=== PATIENT | male | born 1935 | race Two or more races ===

== ENCOUNTER 2018-03-17 20:04 | Emergency (ER) | payer OTHER ==
[~2018-03-17] VITALS: Ht 167.6 cm; Wt 59.0 kg
--- NOTE | 2018-03-17 20:10 | NUR ---
PT FOUND BY [employer] AT HOME FOR WELFARE CHECK. AOX1. INCONTINENT URINE. PT LIVES ALONE AND DENIES ANY PAIN AT THIS TIME. PT ON MONITOR IN BED 1. WILL CONTINUE TO MONITOR.
--- NOTE | 2018-03-17 20:20 | NUR ---
PHLEB AT BEDSIDE FOR LAB DRAW
--- NOTE | 2018-03-17 20:29 | NUR ---
TECH AT BEDSIDE FOR EKG
[2018-03-17] MEDS ORDERED: IV NS 0.9% 1,000 ML BAG IV ONE ×2 (20:30→22:00)
--- NOTE | 2018-03-17 20:30 | NUR ---
RADIOLOGY AT BEDSIDE FOR CXR
[2018-03-17] MEDS ORDERED: LIDOCAINE 2% JEL UROJET 10 ML MM ONE (21:10)
[2018-03-17 21:23] LABS: BASOPHILS % (AUTO) 0.2 % (0.0-2.0); HEMATOCRIT 43 % (39-51); HEMOGLOBIN 14.5 g/dL (13.5-17.5); LYMPHOCYTES # (AUTO) 0.2 /CMM (0.8-4.8); MEAN CORPUSCULAR HGB CONC 34 g/dl (31.0-36.0); MEAN CORPUSCULAR VOLUME 83 fL (80-96); MONOCYTES # (AUTO) 0.9 /CMM (0.1-1.30); MONOCYTES % (AUTO) 4.9 % (2.0-12.0); NEUTROPHILS # (AUTO) 16.4 /CMM (1.8-8.9); NEUTROPHILS % (AUTO) 93.9 % (43.0-81.0); PLATELET COUNT (AUTO) 263 /CMM (150-450); RED BLOOD CELL COUNT(AUTO) 5.16 MIL/uL (4.5-6.0); WHITE BLOOD COUNT (AUTO) 17.5 K/uL (4.3-11.0)
[2018-03-17 21:24] LABS: APPEARANCE,URINE Turbid (CLEAR); BILIRUBIN,URINE Negative (NEGATIVE); BLOOD, URINE Large Ery/uL (NEGATIVE); COLOR,URINE Yellow (YELLOW); KETONES,URINE Trace (NEGATIVE); LEUKOCYTE ESTERASE ,URINE Moderate (NEGATIVE); NITRITE, URINE Negative (NEGATIVE); PROTEIN,URINE 100 mg/dl (NEGATIVE); UGLUCOSE Negative (NEGATIVE); UROBILINOGEN,URINE 0.2 EU/dL (0.2)
[2018-03-17 21:37] LABS: RBC,URINE TOO NUMEROUS TO COUN /HPF (0-2)
[2018-03-17 21:38] LABS: BACTERIA,URINE Many /HPF (None Seen); SQUAMOUS EPITHELIAL CELL,UR Few /HPF (None Seen); WBC,URINE 21-50 /HPF (0-3)
[2018-03-17 21:39] LABS: CALCIUM, SERUM 9.8 mg/dL (8.5-10.1); CARBON DIOXIDE 28 mmol/L (21-32); CHLORIDE 97 mmol/L (98-107); CREATININE 1.7 mg/dL (0.6-1.3); GLUCOSE 107 mg/dL (74-106); POTASSIUM 4.7 mmol/L (3.5-5.1); SODIUM SERUM 134 mmol/L (136-145); UREA NITROGEN, BLOOD 46 mg/dL (7-18)
[2018-03-17 21:46] LABS: ALANINE AMINOTRANSFERASE 25 U/L (12-78); ALBUMIN 3.5 g/dL (3.4-5.0); ALCOHOL, BLOOD < 3 mg/dL (0-0); ALKALINE PHOSPHATASE 128 U/L (46-116); ASPARTATE AMINOTRANSFERASE 60 U/L (15-37); BILIRUBIN,DIRECT 0.2 mg/dL (0.0-0.2); BILIRUBIN,TOTAL 0.9 mg/dL (0.2-1.0); TOTAL PROTEIN, SERUM 8.5 g/dL (6.4-8.2)
[2018-03-17 21:47] LABS: THYROID STIMULATING HORMONE 9.979 uIU/mL (0.358-3.74)
[2018-03-17 21:52] LABS: SERUM AMMONIA < 10 umol/L (11-32)
--- NOTE | 2018-03-17 21:52 | NUR ---
Called [facility] and spoke to Yoni parker MD to call back.
[2018-03-17] MEDS ORDERED: CEFTRIAXONE 1GM BAG (ER ONLY) 1 GM/50 ML PIGGYBACK IV ONE (22:00)
--- NOTE | 2018-03-17 22:00 | NUR ---
ADDENDUM: Intravenous End Time Documentation: Rocephin 1 gram IVPB: start time: 2200 PM; end time:2230 PM ; IV site: LFA #20 Port # 1
--- NOTE | 2018-03-17 22:07 | NUR ---
Dr. Malik ([facility]) called. on phone.
[2018-03-17] MEDS ORDERED: CEFTRIAXONE 1GM BAG (ER ONLY) 50 ML IV ONE (22:09)
[2018-03-17 22:32] LABS: CREATINE KINASE, TOTAL 2851 U/L (39-308)
--- NOTE | 2018-03-17 23:00 | NUR ---
Received a call from [facility] and was told this pt has been accepted at [facility] under Dr. Carlota Qureshi. Number for report is [phone]. BLS transport through [facility] was arranged by [facility] and was given an ETA of [phone]
--- NOTE | 2018-03-17 23:13 | NUR ---
report given to priscilla ambrose
[2018-03-17 23:25] VITALS: BP 136/84
== END 2018-03-17 23:27 ==
LOC: ER 20:08 → EDBD 20:08 → ER 23:27
DX: N39.0 Urinary tract infection, site not specified (principal); N17.9 Acute kidney failure, unspecified; E86.0 Dehydration; I10 Essential (primary) hypertension; N40.0 Benign prostatic hyperplasia without lower urinary tract symptoms; E03.9 Hypothyroidism, unspecified; Z60.2 Problems related to living alone
CPT/HCPCS: 36415; 70450-TC; 71045-TC; 72125-TC; 80048-TC; 80076-TC; 80305; 81000-TC; 82140-TC; 82550-TC; 82553-TC; 82962-TC; 84439-TC; 84443-TC; 84484-TC; 85025-TC; 85730-TC; 87086-TC; 87186-TC; A4606; G0480; J0696; J3490; J7030